=== PATIENT | male | born 1955 | race Two or more races ===

== ENCOUNTER → 2019-03-14 | Outpatient (CLI) | payer OTHER | END | disposition home or self-care (01) | LOC: RX STUDY 07:18 | DX: R13.14 Dysphagia, pharyngoesophageal phase (principal) ==

== ENCOUNTER 2020-04-03 19:00 | Emergency (ER) | payer OTHER ==
[~2020-04-03] VITALS: Ht 177.8 cm; Wt 68.0 kg
[2020-04-03] MEDS ORDERED: SIMVASTATIN40 MG PO (19:17)
[2020-04-03] MEDS ORDERED: TAMS0.4C PO (19:17)
[2020-04-03] MEDS ORDERED: NOXIFOL-D32500 UNIT PO (19:18)
[2020-04-03] MEDS ORDERED: VITAMIN C1500 MG PO (19:18)
[2020-04-04] MEDS ORDERED: PHAZYME250 MG PO (02:15)
[2020-04-04] MEDS ORDERED: PROTONIX40 MG PO (02:15)
[2020-04-04] MEDS ORDERED: ZOFRAN8 MG PO (02:15)
[2020-04-04] MEDS ORDERED: INTESTINEX680 M1 PO (02:15)
[2020-04-04] MEDS ORDERED: PEPCID40 MG PO (02:15)
== END 2020-04-04 02:42 | disposition home or self-care (01) ==
LOC: ER 19:00
DX: K21.9 Gastro-esophageal reflux disease without esophagitis (principal)